=== PATIENT | female | born 2005 | race Caucasian/White ===

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

== ENCOUNTER 2023-05-10 10:48 | Emergency (ER) | payer MEDICAID ==
[~2023-05-10] VITALS: Ht 165.1 cm; Wt 75.0 kg
[~2023-05-10 10:48] MED LIST: CIPHCO RIGHT EAR
[2023-05-10 11:02] VITALS: O2SAT 100
[2023-05-10] MEDS ORDERED: OFLO5DRO4 LEFT EAR (16:56)
[2023-05-10 17:17] VITALS: BP 116/74; PULSE 72; RESP 16; TEMP 98.6
== END 2023-05-10 17:17 | disposition home or self-care (01) ==
LOC: ER 10:59
DX: H60.92 Unspecified otitis externa, left ear (principal)
CPT/HCPCS: 99281; 99285